=== PATIENT | female | born 1945 | race Two or more races ===

== ENCOUNTER 2025-02-25 09:45 | Inpatient (IN) | payer OTHER ==
[~2025-02-25] VITALS: Ht 61 cm; Wt 61.7 kg
[~2025-02-25 09:45] MED LIST: AMLODIPINE-OLM1 EAC2; FOLIC ACID0.8 M1; SYNTHROID50 MCG PO; SYNTHROID88 MCG PO; ZETIA10 MG PO; [UNRECOGNIZED DRUG - OTHER]
[2025-02-26 06:25] LABS: RH POSITIVE
[2025-03-05] MEDS ORDERED: METRONIDAZOLE/SODIUM CHLORIDE 500 MG/100 ML PIGGYBACK IV ONE ×2 (07:00→08:30)
[2025-03-05] MEDS ORDERED: CEFTRIAXONE SODIUM 2,000 MG VIAL ONE (07:00)
[2025-03-05] MEDS ORDERED: CEFTRIAXONE SODIUM 2,000 MG VIAL IV ONE (08:30)
[2025-03-05] MEDS ORDERED: AMLODIPINE BESYL5 MG (08:43)
[2025-03-05] MEDS ORDERED: IRO-PLEX LIQUI120 ML (08:44)
[2025-03-05] MEDS ORDERED: MORPHINE SULFATE 4 MG/ML CARTRIDGE IV PRN (10:15)
[2025-03-05] MEDS ORDERED: RINGERS SOLUTION,LACTATED 1,000 ML IV SCH (10:15)
[2025-03-05] MEDS ORDERED: ONDANSETRON HCL 2 MG/ML VIAL IV PRN (10:15)
[2025-03-05] MEDS ORDERED: OxyCODONE HCL 5 MG TABLET (ROXICODONE) PO PRN (10:15)
[2025-03-05] MEDS ORDERED: DEXTROSE 50 % IN WATER 0.5 G/ML DISP.SYRIN IV PRN (10:15)
[2025-03-05] MEDS ORDERED: ENALAPRILAT DIHYDRATE 1.25 MG/ML VIAL IV PRN (13:30)
[2025-03-05 13:38] LABS: BASO % 0.1 % (0.1-1.2); HEMATOCRIT 33.8 % (34.1-44.9); HEMOGLOBIN 10.5 g/dL (11.2-15.7); LYMPH # 0.53 (1.18-3.74); LYMPH % 4.4 % (19.3-53.1); MEAN CORPUSCULAR HEMOGLOBIN 25.7 pg (25.6-32.2); MONO # 0.75 (0.24-0.82); MONO % 6.3 % (4.7-12.5); NEUT # 10.66 (1.56-6.13); NEUT % 89.1 % (34.0-71.1); PLATELET COUNT 270 K/uL (163-369); RED BLOOD COUNT 4.09 M/uL (3.93-5.22); RED CELL DISTRIBUTION WIDTH 18.6 % (11.6-14.4)
[2025-03-05] MEDS ORDERED: ACETAMINOPHEN 500 MG GEL..CAP PO SCH (14:00)
[2025-03-05 15:17] LABS: ALBUMIN 3.1 gm/dL (3.4-5.0); CALCIUM 8.4 mg/dL (8.5-10.1); CREATININE SERUM 0.78 mg/dL (0.55-1.02); GFR 70.88; MAGNESIUM 1.7 mg/dL (1.8-2.4); PHOSPHOROUS 2.9 mg/dL (2.5-4.9); POTASSIUM 3.99 mEq/L (3.5-5.1)
[2025-03-05] MEDS ORDERED: GABAPENTIN 300 MG CAPSULE PO ONE (16:32)
[2025-03-05] MEDS ORDERED: GABAPENTIN 300 MG CAPSULE PO SCH (17:00)
[2025-03-05] MEDS ORDERED: POLYETHYLENE GLYCOL 3350 17 GM BLIST.PACK PO SCH (17:00)
[2025-03-05] MEDS ORDERED: DEXTROSE 50 % IN WATER 0.5 G/ML VIAL IV PRN (18:00)
[2025-03-05] MEDS ORDERED: INSULIN LISPRO 1,000 UNIT/10 ML UNITS SUBCUTANEO PRN (18:00)
[2025-03-05 18:12] VITALS: BP 136/71; O2SAT 94
[2025-03-05] MEDS ORDERED: FAMOTIDINE/PF 20 MG/2 ML VIAL IV PUSH SCH (21:00)
[2025-03-06 01:04] VITALS: BP 108/64; O2SAT 98
[2025-03-06] MEDS ORDERED: LEVOTHYROXINE SODIUM 88 MCG TABLET PO SCH (06:00)
[2025-03-06 08:00] VITALS: BP 110/62; O2SAT 95
[2025-03-06] MEDS ORDERED: AMLODIPINE BESYLATE 5 MG TABLET PO SCH (09:00)
[2025-03-06] MEDS ORDERED: Cyanocobalamin/Mecobalamin 1 TAB.SL SL SCH (09:40)
[2025-03-06] MEDS ORDERED: SOD FERRIC GLUC COMPLX/SUCROSE 62.5 MG in 0.9 % SODIUM CHLORIDE 50 ML IV SCH (09:40)
[2025-03-06 09:41] LABS: BASO % 0.2 % (0.1-1.2); EOS # 0.02 (0.04-0.54); EOS % 0.2 % (0.7-7.0); HEMATOCRIT 29.2 % (34.1-44.9); HEMOGLOBIN 9.1 g/dL (11.2-15.7); LYMPH # 1.11 (1.18-3.74); LYMPH % 11.6 % (19.3-53.1); MONO # 0.85 (0.24-0.82); MONO % 8.9 % (4.7-12.5); NEUT # 7.53 (1.56-6.13); NEUT % 78.8 % (34.0-71.1); PLATELET COUNT 231 K/uL (163-369); RED CELL DISTRIBUTION WIDTH 18.8 % (11.6-14.4)
[2025-03-06 10:39] LABS: ALBUMIN 2.4 gm/dL (3.4-5.0); CALCIUM 8.1 mg/dL (8.5-10.1); CREATININE SERUM 0.6 mg/dL (0.55-1.02); GFR 95.95; MAGNESIUM 1.6 mg/dL (1.8-2.4); PHOSPHOROUS 2.6 mg/dL (2.5-4.9); POTASSIUM 3.8 mEq/L (3.5-5.1)
[2025-03-06] MEDS ORDERED: ENOXAPARIN SODIUM 40 MG/0.4 ML SYRINGE SUBCUTANEO SCH (17:00)
[2025-03-06 17:43] VITALS: BP 120/71; O2SAT 96
[2025-03-07 01:15] VITALS: BP 122/63; O2SAT 94
[2025-03-07 07:01] LABS: BASO % 0.3 % (0.1-1.2); EOS # 0.19 (0.04-0.54); EOS % 1.6 % (0.7-7.0); HEMATOCRIT 31.7 % (34.1-44.9); HEMOGLOBIN 9.9 g/dL (11.2-15.7); LYMPH # 1.15 (1.18-3.74); LYMPH % 9.9 % (19.3-53.1); MEAN CORPUSCULAR HEMOGLOBIN 26.5 pg (25.6-32.2); MONO # 0.78 (0.24-0.82); MONO % 6.7 % (4.7-12.5); NEUT # 9.45 (1.56-6.13); PLATELET COUNT 254 K/uL (163-369); RED BLOOD COUNT 3.74 M/uL (3.93-5.22); RED CELL DISTRIBUTION WIDTH 18.7 % (11.6-14.4)
[2025-03-07 07:15] LABS: CALCIUM 8.9 mg/dL (8.5-10.1); CREATININE SERUM 0.59 mg/dL (0.55-1.02); GFR 97.82; MAGNESIUM 1.9 mg/dL (1.8-2.4); POTASSIUM 3.85 mEq/L (3.5-5.1)
[2025-03-07 08:00] VITALS: BP 121/69; O2SAT 92
[2025-03-07] MEDS ORDERED: ENOXAPARIN SODIUM 40 MG/0.4 ML SYRINGE SUBCUTANEO SCH (09:00)
[2025-03-07] MEDS ORDERED: POTASSIUM PHOS,M-BASIC-D-BASIC 3 MM/ML VIAL IV ONE (11:00)
[2025-03-07 21:58] VITALS: BP 125/66; O2SAT 94
[2025-03-08 00:44] VITALS: BP 102/57; O2SAT 96
[2025-03-08] MEDS ORDERED: AMOX1TAB5 PO ×2 (12:21)
[2025-03-08] MEDS ORDERED: INTESTINEX680 M1 PO ×2 (12:21)
[2025-03-08] MEDS ORDERED: ACETAMINOPHEN500 M2 PO ×2 (12:21)
[2025-03-08] MEDS ORDERED: NEURONTIN300 MG PO ×2 (12:21)
[2025-03-08] MEDS ORDERED: FAMOtidine 20 MG TABLET PO SCH (21:00)
[2025-03-09] MEDS ORDERED: LEVOTHYROXINE SODIUM 50 MCG TABLET PO SCH (06:00)
== END 2025-03-08 15:31 | disposition home or self-care (01) | DRG 330 ==
LOC: SURH 03-05 05:18 → O/R 03-05 05:18 → SURH 03-05 07:00
PROVIDERS: Internal Medicine Geriatric Medicine; ADMIT Surgery; ATTEND Surgery
PROC: 07BB4ZZ Excision of Mesenteric Lymphatic, Percutaneous Endoscopic Approach (ICD-10-PCS; 2025-03-05)
PROC: 0DTF4ZZ Resection of Right Large Intestine, Percutaneous Endoscopic Approach (ICD-10-PCS; principal; 2025-03-05 07:00)
DX: C18.2 Malignant neoplasm of ascending colon (principal); C78.7 Secondary malignant neoplasm of liver and intrahepatic bile duct; R59.0 Localized enlarged lymph nodes
CPT/HCPCS: 74182

== ENCOUNTER 2025-03-12 07:09 | Emergency (ER) | payer OTHER ==
[~2025-03-12] VITALS: Ht 154.9 cm; Wt 62.1 kg
[~2025-03-12 07:09] MED LIST changes: +ACETAMINOPHEN500 M2 PO; +AMLODIPINE BESYL5 MG; +AMOX1TAB5 PO; +INTESTINEX680 M1 PO; +IRO-PLEX LIQUI120 ML; +NEURONTIN300 MG PO
[2025-03-12] MEDS ORDERED: AMOX1TAB5 PO (07:47)
[2025-03-12] MEDS ORDERED: BIOTINEX (07:47)
[2025-03-12] MEDS ORDERED: CEFTRIAXONE SODIUM 1,000 MG VIAL IM ONE (08:45)
[2025-03-12] MEDS ORDERED: METHYLPREDNISOLONE SOD SUCC 125 MG VIAL IM ONE (08:45)
[2025-03-12] MEDS ORDERED: METHYLPREDNISOLONE SOD SUCC 125 MG VIAL ONE (09:05)
[2025-03-12] MEDS ORDERED: LIDOCAINE HCL/MPF 1% 5ML VIAL IJ ONE (09:06)
[2025-03-12] MEDS ORDERED: CEFTRIAXONE SODIUM 1,000 MG VIAL ONE (09:06)
[2025-03-12 09:29] LABS: BASO % 0.6 % (0.1-1.2); EOS # 0.24 (0.04-0.54); EOS % 2.8 % (0.7-7.0); HEMATOCRIT 32.2 % (34.1-44.9); HEMOGLOBIN 10.1 g/dL (11.2-15.7); LYMPH # 1.61 (1.18-3.74); LYMPH % 18.9 % (19.3-53.1); MEAN CORPUSCULAR HEMOGLOBIN 26.2 pg (25.6-32.2); MONO # 0.77 (0.24-0.82); NEUT # 5.74 (1.56-6.13); NEUT % 67.4 % (34.0-71.1); PLATELET COUNT 297 K/uL (163-369); RED BLOOD COUNT 3.86 M/uL (3.93-5.22); RED CELL DISTRIBUTION WIDTH 19.1 % (11.6-14.4)
[2025-03-12 09:45] LABS: ERYTHROCYTE SEDIMENTATION RATE 70 mm/hr (0-30)
[2025-03-12 12:29] LABS: ALBUMIN 2.9 gm/dL (3.4-5.0); BILIRUBIN TOTAL 0.33 mg/dL (0.3-1.2); CALCIUM 9.4 mg/dL (8.5-10.1); CREATININE SERUM 0.63 mg/dL (0.55-1.02); GFR 90.69; GLOBULINA 4.2 G/DL (2.4-3.5); POTASSIUM 4.14 mEq/L (3.5-5.1); TOTAL PROTEIN 7.1 gm/dL (6.4-8.2)
[2025-03-12 12:34] LABS: C-REACTIVE PROTEIN 6.51 MG/DL (0.00-0.29)
[2025-03-12] MEDS ORDERED: PROTONIX40 MG PO (15:10)
[2025-03-12] MEDS ORDERED: AVIDOXY100 MG PO (15:10)
== END 2025-03-12 15:43 | disposition home or self-care (01) ==
LOC: ER 07:09
PROVIDERS: General Practice
DX: L03.114 Cellulitis of left upper limb (principal); E78.00 Pure hypercholesterolemia, unspecified; E03.8 Other specified hypothyroidism; I10 Essential (primary) hypertension; Z85.038 Personal history of other malignant neoplasm of large intestine
CPT/HCPCS: 36415; 96372; 99282; J0696; J3490